=== PATIENT | male | born 1935 | race Caucasian/White ===

== ENCOUNTER 2023-11-24 13:08 | Emergency (ER) | payer MEDICARE, OTHER, SELFPAY ==
[2023-11-24 13:08] VITALS: BP 160/69; PULSE 64; RESP 16; TEMP 36.6; O2SAT 95; BMI 28.8
[2023-11-24 13:27] VITALS: BP 157/67
--- NOTE | 2023-11-24 13:50 | EKG12_ITS ---
Test Reason : ANXIETY Blood Pressure : / mmHG Vent. Rate : 060 BPM Atrial Rate : 000 BPM P-R Int : 000 ms QRS Dur : 150 ms QT Int : 430 ms P-R-T Axes : 000 -58 109 degrees QTc Int : 430 ms Wide QRS rhythm Left axis deviation Left bundle branch block Abnormal ECG NORMAL SINUS RHYTHM Confirmed by IRAM REVELES, ARPITA ([id number]), primer expeditor and drier MISTY ANDRADE ([id number]) on 11/25/2023 8:01:05 AM Referred By: Confirmed By:ARPITA WALDEN MD
--- NOTE | 2023-11-24 13:50 | CT_ITS ---
STUDY: CT BRAIN WITHOUT CONTRAST REASON FOR EXAM: Male, 88 years old. Anxiety, H/O retinal melanoma RADIATION DOSAGE (If Supplied By Facility): CTDIvol = ( 44.99 ) mGy, DLP = ( 846.73 ) mGycm TECHNIQUE: Transaxial CT imaging of the brain was performed without administration of intravenous contrast material. Individualized dose optimization techniques were used for this CT. COMPARISON: No relevant priors. FINDINGS: Normal soft tissue structures. Normal calvarium. There is mild cerebral atrophy with widening of the extra-axial spaces and ventricular dilatation. There are areas of decreased attenuation within the white matter tracts of the supratentorial brain, consistent with microvascular disease changes. Normal basal ganglia and thalami. Normal brainstem. Normal cerebellum. There is no intracranial hemorrhage. There are no findings of an acute ischemic infarction. Normal visualized paranasal sinuses. CT/Brain/Head without Contrast IMPRESSION: Chronic involutional changes of the brain. Electronically Signed: Roney Nielsen MD at 15:43 EDT ,
--- NOTE | 2023-11-24 13:52 | EDS_ITS ---
HPI History of Present Illness Chief Complaint: Anxiety Informant: patient and spouse/S.O. Narrative Narrative: Patient presents secondary to increased anxiety over the past 4 to 5 days. His daughter is a physician in [place] and she primarily manages his medications. His longstanding primary care physician in this area lost his license recently and he does not have another local PCP. He states that he had had a freckle on his retina for several years that was checked yearly. When it was rechecked in September of this year it had changed and concern was that he had developed melanoma. He had surgery at [facility] in October. He states that they put a radiation disc behind his eye on a Friday and patched his eye closed for the weekend. The disc was removed on Friday and then he was able to remove the eye patch 2 days later. He has a history of claustrophobia and thought that this would bother him, however he and both state that he came through this rather well. Over the past 4 days or so he has now noted increased anxiety. Hi s daughter had given him a prescription for Valium. He took 1 yesterday and stated that he was able to sit and watch the golf match, but still felt anxious. She also sent a prescription for Xanax that he tried it for and this morning when he woke up very anxious and having difficulty sitting still. He reported no significant improvement in this. She has also started him on Lexapro. Patient and state they spent the morning calling multiple different psychiatrists to be seen and treated for his anxiety. He has an appointment to see Dr. Guillermo at the counseling center later this month. He denies chest pain or palpitations. He denies headache. He states he has never had problems with anxiety in the past. [facility] Medical History (Updated 11/24/23 @ 15:[address] Ute Carson MD) Asthma HTN (hypertension) Left bundle branch block Melanoma Home Medications alprazolam 0.25 mg tablet 0.25 mg PO BID PRN PRN anxiety 11/24/23 [History Last Taken Unknown] atenolol 50 mg-chlorthalidone 25 mg tablet 1 tab PO DAILY 11/24/23 [History Last Taken Unknown] budesonide-formoterol HFA 80 mcg-4.5 mcg/actuation aerosol inhaler (Symbicort) 1 puff inhalation DAILY 11/24/23 [History Last Taken Unknown] cholecalciferol (vitamin D3) 10 mcg (400 unit) capsule 10 mcg PO DAILY 11/24/23 [History Last Taken Unknown] escitalopram oxalate 5 mg tablet 5 mg PO DAILY 11/24/23 [History Last Taken Unknown] mecobalamin (vitamin B12) 1,000 mcg chewable tablet 1,000 mcg PO DAILY 11/24/23 [History Last Taken Unknown] multivitamin 1 tab PO DAILY 11/24/23 [History Last Taken Unknown] niacin 250 mg tablet 250 mg PO DAILY 11/24/23 [History Last Taken Unknown] potassium chloride 20 mEq tablet,extended release 20 meq PO TID 11/24/23 [History Last Taken Unknown] Allergy/AdvReac Type Severity Reaction Status Date / Time No Known Allergies Allergy Verified 11/24/23 13:11 Social History household members: spouse housing: house current occupational status: retired Smoking Status: Never smoker ROS ROS ED Constitutional Constitutional ED: Denies chills or fever(s) Eyes Eyes: Denies discharge from eye(s) ENT ENT ED: Denies discharge from eye(s), rhinorrhea or sore throat Cardiovascular Cardiovascular: Denies chest pain or palpitations Respiratory/Chest Respiratory/Chest: Denies cough or dyspnea Gastrointestinal Gastrointestinal: Denies abdominal pain, nausea or vomiting Genitourinary Genitourinary ED: Denies dysuria Musculoskeletal Musculoskeletal: Denies back pain or extremity pain Integumentary Denies Abrasions or rash Neurologic Neurologic: Denies headache(s) or weakness Psychiatric Psychiatric: Reports anxiety; Denies depression EXAM Physical Exam Const Vital Signs: 11/24/23 13:08 11/24/23 13:27 11/24/23 15:08 Temperature 97.8 F Temperature Source Temporal Pulse Rate 64 61 Respiratory Rate 16 14 Blood Pressure 160/69 H 157/67 H 148/64 H Blood Pressure Mean 99 97 92 Pulse Ox 95 Oxygen Delivery Method Room Air Positive well nourished and well developed General Appearance ED: well developed HEENT Reports moist mucous membranes Eyes EOMs intact bilaterally Chest Wall inspection of chest normal and palpation of chest normal Resp normal respiratory effort and clear to auscultation bilaterally Cardio regular rate and regular rhythm GI non-tender Palpation: soft Extremity normal to inspection Neuro oriented x3 and no sensory deficits noted Motor Exam: strength 5/5 throughout Psych Mood & Affect: anxious Skin no rashes or lesions noted MDM MDM MDM Narrative Medical decision making narrative: Patient placed on feather mixer. EKG obtained to evaluate for cardiac arrhythmia/ischemia. IV line initiated. Labwork obtained to evaluate for leukocytosis, anemia, and electrolyte derangement. History & Record Review Discussion w/independent historian: Patient and Significant other Lab Data Attestation: I reviewed the patient's lab results. Labs: Laboratory Results - last 24 hr 11/24/23 14:05 WBC 8.1 RBC 4.78 Hgb 15.4 Hct 45.0 MCV 94.1 H MCH 32.2 H MCHC 34.2 RDW Std Deviation 44.6 H RDW Coeff of Josselin 13.1 Plt Count 147 L MPV 11.2 Immature Gran % (Auto) 0.400 Neut % (Auto) 70.3 H Lymph % (Auto) 19.3 Dorado % (Auto) 8.3 Eos % (Auto) 1.6 Baso % (Auto) 0.1 Absolute Neuts (auto) 5.7 Absolute Lymphs (auto) 1.56 Nucleated RBC % 0 Sodium 141 Potassium 3.6 Chloride 107 Carbon Dioxide 31.0 Anion Gap 3 L BUN 16 Creatinine 0.87 Estim Creat Clear Calc 66.57 Est GFR (MDRD) Af Amer 106 Est GFR (MDRD) Non-Af 88 BUN/Creatinine Ratio 18.3 Glucose 129 H Calcium 9.3 Total Bilirubin 0.90 Direct Bilirubin 0.26 AST 20 ALT 29 Alkaline Phosphatase 68 Troponin I High Sens 66 Total Protein 7.4 Albumin 3.9 Globulin 3.5 TSH 0.32 L Thyroxine (T4) 9.2 Radiography Chest X-Ray - ED: 1 View, Read by ED Physician, Cardiomegaly and Left Effusion EKG Initial EKG: Attestation: I personally reviewed and interpreted this EKG as follows: Interpretation: Sinus Rhythm (Sinus rhythm at 60 with left bundle branch block. No acute ischemia.) Treatment and Re-Evaluation :: CBC was a white count of 8.1 with a hemoglobin of 15.4. Differential unremarkable. Chemistry studies unremarkable with normal renal function. Glucose is 129. LFTs are unremarkable. TSH is slightly low at 0.32. I did add a T4 which is normal at 9.2. T3 is pending at this time. EKG is sinus rhythm with a left bundle branch block. No acute ischemia and unchanged when compared to prior. Portable chest x-ray per my interpretation reveals cardiomegaly with a small left pleural effusion. Radiology interpretation is pending at this time. Patient was given 0.5 mg of p.o. Ativan and is just now going for head CT. This was signed out to oncoming physician for final evaluation and recheck. Patient and spouse are aware of this. Discharge Plan Triage Chief Complaint: Anxiety ED Provider: Ute Carson Dx/Rx/DC Orders Clinical Impression: Anxiety Instructions: ED Anxiety Reaction Prescriptions: No Action alprazolam 0.25 mg tablet 0.25 mg PO BID PRN PRN (Reason: anxiety) atenolol-chlorthalidone 50-25 mg tablet 1 tab PO DAILY escitalopram oxalate 5 mg tablet 5 mg PO DAILY potassium chloride 20 mEq tablet extended release 20 meq PO TID niacin 250 mg tablet 250 mg PO DAILY cholecalciferol (vitamin D3) 10 mcg (400 unit) capsule 10 mcg PO DAILY multivitamin Tablet 1 tab PO DAILY mecobalamin (vitamin B12) 1,000 mcg tablet,chewable 1,000 mcg PO DAILY budesonide-formoterol [Symbicort] 80-4.5 mcg/actuation HFA aerosol inhaler 1 puff inhalation DAILY Primary Care Provider: Care Physician,No Primary Referrals: Care Physician,No Primary [Primary Care Provider] -
--- NOTE | 2023-11-24 14:04 | NURSING ---
NO OLD EKGS
[2023-11-24 14:12] LABS: Absolute Lymphocyte Count 1.56 X10^3/uL (0.83-4.51); Absolute Neutrophil Count 5.7 X10^3/uL (2.0-7.7); Basophil# 0.01 X10^3/uL; Basophil% 0.1 % (0-1); Eosinophil# 0.13 X10^3/uL; Eosinophils% 1.6 % (0-5); Hemoglobin 15.4 g/dL (13.0-16.5); Lymphocyte # 1.56 X10^3/ul (0.83-4.51); Lymphocyte % 19.3 % (19-41); Mean Corp Hgb Conc 34.2 g/dL (32-36); Mean Corpuscular Hgb 32.2 pg (27.0-32.0); Mean Corpuscular Volume 94.1 fL (80-94); Mean Platelet Vol. 11.2 fl (6.2-12.0); Monocyte# 0.67 X10^3/uL; Monocyte% 8.3 % (0-10); NRBC Flagged by Analyzer 0 % (0-5); Neutrophil % 70.3 % (47-70); Platelet Count 147 K/mm3 (150-450); RBC Distribution Width CV 13.1 % (11.6-14.6); RBC Distribution Width SD 44.6 fl (35.1-43.9); Red Blood Count 4.78 M/mm3 (4.6-6.2); White Blood Count 8.1 K/mm3 (4.4-11.0)
[2023-11-24 14:36] LABS: AST(SGOT) 20 U/L (15-37); Alanine Aminotransfer ALT/SGPT 29 U/L (16-61); Albumin, Serum 3.9 g/dL (3.2-5.0); Alkaline Phosphatase 68 U/L (45-117); Anion Gap 3 (5-15); BUN 16 mg/dL (7-18); BUN/Creat Ratio 18.3 RATIO (10-20); Bilirubin, Direct 0.26 mg/dL (0.00-0.30); Calcium,Total 9.3 mg/dL (8.5-10.1); Chloride 107 mmol/L (98-107); Creatinine, Serum 0.87 mg/dL (0.70-1.30); EST Glomerular Filtration Rate 88 mL/min (>60); Est Glom Filt Rate - Afr Amer 106 mL/min (>60); Estimated Creatinine Clearance 66.57 ml/min; Globulin 3.5 g/dL (2.2-4.2); Glucose 129 mg/dL (74-106); Potassium 3.6 mmol/L (3.5-5.1); Protein, Total 7.4 g/dL (6.4-8.2); Sodium Level 141 mmol/L (136-145); Thyroid Stim Hormone (TSH) 0.32 uIU/mL (0.358-3.74); Troponin-I HS 66 pg/mL (3.0-78.0)
[2023-11-24] MEDS: LORazepam 0.5 MG Tablet PO (14:41)
[2023-11-24 14:59] LABS: T4 Total, Thyroxin 9.2 ug/dL (4.5-12.1)
--- NOTE | 2023-11-24 15:00 | RAD_ITS ---
STUDY: X-RAY CHEST REASON FOR EXAM: Male, 88 years old. Sob TECHNIQUE: Single AP portable view of the chest. COMPARISON: None. FINDINGS: EKG electrodes are seen. Bibasilar infiltrates slightly more prominent on the left side. Small left pleural effusion. Normal size heart. Normal mediastinum and amina. Normal visualized pulmonary arteries. There is atherosclerotic calcification of the aortic arch with tortuosity. There are degenerative changes of the visualized thoracic spine. Normal visualized ribs, clavicles, and shoulders. There is no demonstrated abnormality of the visualized soft tissue structures of the upper abdomen. RAD/Chest 1 View (Portable) IMPRESSION: Bibasilar infiltrates worse on the left side with a small left pleural effusion. Electronically Signed: Roney Nielsen MD at 15:14 EDT ,
[2023-11-24 15:08] VITALS: BP 148/64; PULSE 61; RESP 14
[2023-11-24 15:30] LABS: T3 Total - Triiodothyronine 1.07 ng/mL (0.6-1.81)
[2023-11-24 16:43] VITALS: BP 124/67; PULSE 62; RESP 15; TEMP 36.6; O2SAT 97
== END 2023-11-24 16:49 | disposition home or self-care (01) ==
PROVIDERS: Emergency Provider Emergency Medicine; Visit Provider Emergency Medicine
DX: F41.9 Anxiety disorder, unspecified (principal); Z79.899 Other long term (current) drug therapy; I10 Essential (primary) hypertension; J45.909 Unspecified asthma, uncomplicated; Z79.51 Long term (current) use of inhaled steroids
CPT/HCPCS: 70450; 71045; 80048; 80076; 84436; 84443; 84480; 84484; 85025; 93005; 99285

== ENCOUNTER 2024-05-24 09:00 | Outpatient (RCR) | payer MEDICARE, OTHER, SELFPAY ==
--- NOTE | 2024-02-12 13:27 | HP.PTEVAL_ITS ---
Patient's Visit Information Visit Information Visit Information: HAO JACOME is a 88 year old M referred to Physical Therapy by Dr. Brielle Rivers DO with a diagnosis of POOR BALANCE ,LEG WEAKNESS ,RIGHT SHOULDER MUSCLE SPASMS. Date of Evaluation: 02/12/24 Physical Therapist: Collins Scanlon, PT, Cert MDT, OCS Visit Plan Frequency: 2x /Week Duration: 4 Weeks Plan: PT INTERVENTIONS PROGRESSIVE BALANCE TRAINING ,BLE STRENGTHENING ,ENDURANCE PROGRAM ,FUNCTIONAL STRENGTHENING ,CERVICAL ROM /POSTURAL EX'S AND MANUAL THERAPY STM AND MODALTIES NEED ( PLAN TX 60 MIN - 30 FOR BALANCE AND STRENGTH LE AND 30 FOR CERVICAL /POSTURE ) Subjective Subjective: This 88 y/o male presents to physical therapy with decrease balance/weakness and right shoulder with muscle spasms pain/spasms . Patient has had progressive weakness and decrease gait. Patient has retina with decrease vision. Patient seen DR mcgarry PT. Patient ahs fallen 3 x past 6 months mechanical fall. Denies dizziness /nausea. 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 Patient c/o right UT pain worse when pushing arm when getting out of bed. Patient c/o generalized weakness . Patient has seen chiropractor [place]. Patient has difficulty sleeping at night. Patient does not use cane. Patient lives in 2 story home level and 12 steps to 2 nd floor. Patient tub/shower. Patient able to dress and bath. Patient does cooking cleaning . Patient condition affects QOL and function/walking/ADLS. Patient goals to get stronger. SOCIAL: Objective Objective: POSTURE: mild forward posture rounded shoulders head forward PALPATION: tender UT/levator/paraspinals/OA NEURO: denies paresthesia/tingling ,reflexes C5-6-7 1/ AROM: shoulder flexion 120 degrees ,abduction 110 degrees ,ER 85 degrees CERVICAL ROM: flexion min loss ,extension severe loss ,lateral flexion /rotation severe loss pain ,left mod/severe loss MMT: grossly 4/5 ,shoulder s 3+/5 GAIT: ambulates with decrease step length ,NOS ,slow emilia forward posture MMT: quads/hams 4/5 ,hip flexion 4-/5 ,hip abd 3+/5 ankle 4/5 Special Tests C/S Radiculapathy - Left Upper limb tension test: Negative C/S Radiculapathy - Right Upper limb tension test: Negative C/S Radiculapathy - Left Spurlings: Positive C/S Radiculapathy - Right Spurlings: Positive C/S Radiculapathy - Left Cervical distraction: Negative C/S Radiculapathy - Right Cervical distraction: Negative C/S Radiculapathy - Left Relief test: Negative Sharp Ramehs: Negative Vertebral Artery Test: Negative Alar Ligament Test: Negative Balance/Special Test Scores Functional Gait Assessment Score: 14 % Disability: 53.3400 CATSIB Score (Max score 120 seconds): 70 Lower Extremity Functional Score: 28 Goals Goal 1:: Patient to be I with HEP for strengthening and balance Goal Time Frame: 4-6 Weeks Goal 2:: Patient to demonstrate 50% improvement with increase strength and improved balance Goal Time Frame: 4-6 Weeks Goal 3:: Patient to improve CATSIB by 5 points to decrease risk of falls Goal Time Frame: 4-6 Weeks Goal 4:: Patient to improve LFES score by 5 points to improve QOL Goal Time Frame: 4-6 Weeks Goal 5:: Patient to improve functional gait assessment score by 5 points to improve QOL and balance Goal Time Frame: 4-6 Weeks Goal 6:: Patient improve cervical ROM for function of recovery to drive car to turn neck Goal Time Frame: 4-6 Weeks Rehabilitation Potential Physical Therapy Diagnosis: Patient has decrease balance with weakness with decrease CATSIBE and functional gait assessment ,h/o falls with cervical pain with possible stenosis worse on right side with pain increases with motion to right thus benefit from skilled PT Rehabilitation Potential: Good Anticipated Interventions Patient/Client Instruction: Educate patient on: Condition and Plan of Care For the Purpose of:: To decrease pain, To increase ROM, To improve muscle performance and motor function, To improve ability to perform ADL's, To increase tolerance to activity/condition/position, To improve ability of physical actions for home/community/work/leisure, To improve gait and locomotor functions, To increase flexibility/ROM, To improve endurance and To improve balance Therapeutic Exercise to Include: Strength training, Endurance training, Balance training, Flexibilty training, Gait and locomotor training and Active ROM Comment: BLE ,CERVICAL For the Purpose of:: To decrease pain, To increase ROM, To improve muscle performance and motor function, To increase tolerance to activity/condition/position, To improve health of tissue, To decrease soft tissue restriction, To increase flexibility/ROM, To improve endurance, To improve balance and To improve tolerance to ADL's Manual Therapy Techniques to Include: Soft tissue mobilization Comment: CERVICAL For the Purpose of:: To decrease pain, To increase ROM, To improve nutrient delivery to tissue, To increase oxygenation perfusion, To improve health of tissue and To decrease soft tissue restriction TENS: Yes IF ES: Yes Cryotherapy (ice pack, ice massage): Yes Thermo therapy (hot pack): Yes Ultrasound (thermal/non thermal): Yes For the Purpose of:: To decrease pain, To increase ROM, To improve nutrient delivery to tissue, To increase oxygenation perfusion, To improve health of tissue and To decrease soft tissue restriction Text: Thank you for the opportunity to evaluate your patient. For Medicare and Medicare HMO plans, please review the plan of care and approve it. It will need to be FAXED BACK to us at [phone] for Medicare purposes. For Medicare only, by signing this I certify the plan of care. Please let me know if there are questions or concerns regarding this plan of c are. Physician Signature: Date:
--- NOTE | 2024-03-18 11:40 | HP.PTREVAL ---
Re-Evaluation Intro: Dr. Brielle Rivers, DO, It has been my pleasure to treat HAO JACOME over the last 8 visits for POOR BALANCE ,LEG WEAKNESS ,RIGHT SHOULDER MUSCLE SPASMS. Please see the progress note below for an update on the physical therapy plan of care! Subjective Subjective: Pain in right UT intermittent ,I was real sore last session Today min pain Objective Objective/Function: POSTURE: mild forward posture rounded shoulders head forward PALPATION: tender UT/levator/paraspinals/OA NEURO: denies paresthesia/tingling ,reflexes C5-6-7 1/ AROM: shoulder flexion 120 degrees ,abduction 110 degrees ,ER 85 degrees CERVICAL ROM: flexion min loss ,extension severe loss ,lateral flexion /rotation severe loss pain ,left mod/severe loss MMT: grossly 4/5 ,shoulder s 3+/5 GAIT: ambulates with decrease step length ,NOS ,slow emilia forward posture MMT: quads/hams 4/5 ,hip flexion 4-/5 ,hip abd 3+/5 ankle 4/5 Plan Plan Plan: PT INTERVENTIONS PROGRESSIVE BALANCE TRAINING ,BLE STRENGTHENING ,ENDURANCE PROGRAM ,FUNCTIONAL STRENGTHENING ,CERVICAL ROM /POSTURAL EX'S AND MANUAL THERAPY STM AND MODALTIES NEED ( PLAN TX 60 MIN - 30 FOR BALANCE AND STRENGTH LE AND 30 FOR CERVICAL /POSTURE ) Balance/Gait/Functional tests Balance/Special Test Scores Functional Gait Assessment Score: 15 % Disability: 50.0000 CATSIB Score (Max score 120 seconds): 75 Lower Extremity Functional Score: 28 30 Second Chair Rise Test Seconds: 4 Goals Goals Goal 1:: Patient to be I with HEP for strengthening and balance Goal Time Frame: 4-6 Weeks Goal Progress: Progressing Goal 2:: Patient to demonstrate 50% improvement with increase strength and improved balance Goal Time Frame: 4-6 Weeks Goal Progress: Progressing Goal 3:: Patient to improve CATSIB by 5 points to decrease risk of falls Goal Time Frame: 4-6 Weeks Goal 4:: Patient to improve LFES score by 5 points to improve QOL Goal Time Frame: 4-6 Weeks Goal Progress: Progressing Goal 5:: Patient to improve functional gait assessment score by 5 points to improve QOL and balance Goal Time Frame: 4-6 Weeks Goal Progress: Progressing Goal 6:: Patient improve cervical ROM for function of recovery to drive car to turn neck Goal Time Frame: 4-6 Weeks Goal Progress: Progressing Anticipated Interventions Anticipated Interventions Patient/Client Instruction: Educate patient on: Condition and Plan of Care For the Purpose of:: To decrease pain, To increase ROM, To improve muscle performance and motor function, To improve ability to perform ADL's, To increase tolerance to activity/condition/position, To improve ability of physical actions for home/community/work/leisure, To improve gait and locomotor functions, To increase flexibility/ROM, To improve endurance and To improve balance Therapeutic Exercise to Include: Strength training, Endurance training, Balance training, Flexibilty training, Gait and locomotor training and Active ROM Comment: BLE ,CERVICAL For the Purpose of:: To decrease pain, To increase ROM, To improve muscle performance and motor function, To increase tolerance to activity/condition/position, To improve health of tissue, To decrease soft tissue restriction, To increase flexibility/ROM, To improve endurance, To improve balance and To improve tolerance to ADL's Manual Therapy Techniques to Include: Soft tissue mobilization Comment: CERVICAL For the Purpose of:: To decrease pain, To increase ROM, To improve nutrient delivery to tissue, To increase oxygenation perfusion, To improve health of tissue and To decrease soft tissue restriction TENS: Yes IF ES: Yes Cryotherapy (ice pack, ice massage): Yes Thermo therapy (hot pack): Yes Ultrasound (thermal/non thermal): Yes For the Purpose of:: To decrease pain, To increase ROM, To improve nutrient delivery to tissue, To increase oxygenation perfusion, To improve health of tissue and To decrease soft tissue restriction Re-Evaluation Ending Re-evaluation ending: Please do not hesitate to contact me at [phone] by phone or if you have questions or concerns regarding this new plan of care! Sincerely, Collins Scanlon, PT, Cert MDT, OCS
--- NOTE | 2024-04-19 13:41 | HP.PTREVAL_ITS ---
Re-Evaluation Intro: Dr. Brielle Rivers, DO, It has been my pleasure to treat HAO JACOME over the last 11 visits for POOR BALANCE ,LEG WEAKNESS ,RIGHT SHOULDER MUSCLE SPASMS. Please see the progress note below for an update on the physical therapy plan of care! Subjective Subjective: Making good progress with neck pain Need to work on balance Objective Objective/Function: * Patient will continue to benefit from skilled PT to improve balance and pain patient has made nice progress towards goals* POSTURE: mild forward posture rounded shoulders head forward PALPATION: tender UT/levator/paraspinals/OA NEURO: denies paresthesia/tingling ,reflexes C5-6-7 / AROM: shoulder flexion 140 degrees ,abduction 130 degrees ,ER 85 degrees CERVICAL ROM: flexion min loss ,extension severe loss ,lateral flexion /rotation severe loss pain ,left mod/severe loss MMT: grossly 4/5 ,shoulder s 3+/5 GAIT: ambulates with decrease step length ,NOS ,slow emilia forward posture MMT: quads/hams 4/5 ,hip flexion 4-/5 ,hip abd 3+/5 ankle 4/5 Plan Plan Plan: PT INTERVENTIONS PROGRESSIVE BALANCE TRAINING ,BLE STRENGTHENING ,ENDURAN CE PROGRAM ,FUNCTIONAL STRENGTHENING ,CERVICAL ROM /POSTURAL EX'S AND MANUAL THERAPY STM AND MODALTIES NEED ( PLAN TX 60 MIN - 30 FOR BALANCE AND STRENGTH LE AND 30 FOR CERVICAL /POSTURE ) Balance/Gait/Functional tests Balance/Special Test Scores Functional Gait Assessment Score: 15 % Disability: 50.0000 CATSIB Score (Max score 120 seconds): 85 Lower Extremity Functional Score: 30 30 Second Chair Rise Test Seconds: 4 Goals Goals Goal 1:: Patient to be I with HEP for strengthening and balance Goal Time Frame: 4-6 Weeks Goal Progress: Progressing Goal 2:: Patient to demonstrate 50% improvement with increase strength and improved balance Goal Time Frame: 4-6 Weeks Goal Progress: Progressing Goal 3:: Patient to improve CATSIB by 5 points to decrease risk of falls Goal Time Frame: 4-6 Weeks Goal 4:: Patient to improve LFES score by 5 points to improve QOL Goal Time Frame: 4-6 Weeks Goal Progress: Progressing Goal 5:: Patient to improve functional gait assessment score by 5 points to improve QOL and balance Goal Time Frame: 4-6 Weeks Goal Progress: Progressing Goal 6:: Patient improve cervical ROM for function of recovery to drive car to turn neck Goal Time Frame: 4-6 Weeks Goal Progress: Progressing Anticipated Interventions Anticipated Interventions Patient/Client Instruction: Educate patient on: Condition and Plan of Care For the Purpose of:: To decrease pain, To increase ROM, To improve muscle performance and motor function, To improve ability to perform ADL's, To increase tolerance to activity/condition/position, To improve ability of physical actions for home/community/work/leisure, To improve gait and locomotor functions, To increase flexibility/ROM, To improve endurance and To improve balance Therapeutic Exercise to Include: Strength training, Endurance training, Balance training, Flexibilty training, Gait and locomotor training and Active ROM Comment: BLE ,CERVICAL For the Purpose of:: To decrease pain, To increase ROM, To improve muscle performance and motor function, To increase tolerance to activity/condition/position, To improve health of tissue, To decrease soft tissue restriction, To increase flexibility/ROM, To improve endurance, To improve balance and To improve tolerance to ADL's Manual Therapy Techniques to Include: Soft tissue mobilization Comment: CERVICAL For the Purpose of:: To decrease pain, To increase ROM, To improve nutrient delivery to tissue, To increase oxygenation perfusion, To improve health of tissue and To decrease soft tissue restriction TENS: Yes IF ES: Yes Cryotherapy (ice pack, ice massage): Yes Thermo therapy (hot pack): Yes Ultrasound (thermal/non thermal): Yes For the Purpose of:: To decrease pain, To increase ROM, To improve nutrient delivery to tissue, To increase oxygenation perfusion, To improve health of tissue and To decrease soft tissue restriction Re-Evaluation Ending Re-evaluation ending: Please do not hesitate to contact me at [phone] by phone or if you have questions or concerns regarding this new plan of care! Sincerely, Collins Scanlon, PT, Cert MDT, OCS
--- NOTE | 2024-04-19 13:47 | HP.PTEVAL_ITS ---
Patient's Visit Information Visit Information Visit Information: HAO JACOME is a 88 year old M referred to Physical Therapy by Dr. Brielle Rivers DO with a diagnosis of POOR BALANCE ,LEG WEAKNESS ,RIGHT SHOULDER MUSCLE SPASMS. Date of Evaluation: 02/12/24 Physical Therapist: Collins Scanlon, PT, Cert MDT, OCS Visit Plan Frequency: 2x /Week Duration: 4 Weeks Plan: PT INTERVENTIONS PROGRESSIVE BALANCE TRAINING ,BLE STRENGTHENING ,ENDURANCE PROGRAM ,FUNCTIONAL STRENGTHENING ,CERVICAL ROM /POSTURAL EX'S AND MANUAL THERAPY STM AND MODALTIES NEED ( PLAN TX 60 MIN - 30 FOR BALANCE AND STRENGTH LE AND 30 FOR CERVICAL /POSTURE ) Subjective Subjective: This 88 y/o male presents to physical therapy with decrease balance/weakness and right shoulder with muscle spasms pain/spasms . Patient has had progressive weakness and decrease gait. Patient has retina with decrease vision. Patient seen DR mcgarry PT. Patient ahs fallen 3 x past 6 months mechanical fall. Denies dizziness /nausea. 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 Patient c/o right UT pain worse when pushing arm when getting out of bed. Patient c/o generalized weakness . Patient has seen chirop[place]. Patient has difficulty sleeping at night. Patient does not use cane. Patient lives in 2 story home level and 12 steps to 2 nd floor. Patient tub/shower. Patient able to dress and bath. Patient does cooking cleaning . Patient condition affects QOL and function/walking/ADLS. Patient goals to get stronger. SOCIAL: Pain Neck/Shoulders: Pain Intensity (Out of 10): 0 Objective Objective: POSTURE: mild forward posture rounded shoulders head forward PALPATION: tender UT/levator/paraspinals/OA NEURO: denies paresthesia/tingling ,reflexes C5-6-7 09/10 AROM: shoulder flexion 120 degrees ,abduction 110 degrees ,ER 85 degrees CERVICAL ROM: flexion min loss ,extension severe loss ,lateral flexion /rotation severe loss pain ,left mod/severe loss MMT: grossly 4/5 ,shoulder s 3+/5 GAIT: ambulates with decrease step length ,NOS ,slow emilia forward posture MMT: quads/hams 4/5 ,hip flexion 4-/5 ,hip abd 3+/5 ankle 4/5 Special Tests C/S Radiculapathy - Left Upper limb tension test: Negative C/S Radiculapathy - Right Upper limb tension test: Negative C/S Radiculapathy - Left Spurlings: Positive C/S Radiculapathy - Right Spurlings: Positive C/S Radiculapathy - Left Cervical distraction: Negative C/S Radiculapathy - Right Cervical distraction: Negative C/S Radiculapathy - Left Relief test: Negative Sharp Ramesh: Negative Vertebral Artery Test: Negative Alar Ligament Test: Negative Balance/Special Test Scores Functional Gait Assessment Score: 15 % Disability: 50.0000 CATSIB Score (Max score 120 seconds): 85 Lower Extremity Functional Score: 30 30 Second Chair Rise Test Seconds: 4 Goals Goal 1:: Patient to be I with HEP for strengthening and balance Goal Time Frame: 4-6 Weeks Goal 2:: Patient to demonstrate 50% improvement with increase strength and improved balance Goal Time Frame: 4-6 Weeks Goal 3:: Patient to improve CATSIB by 5 points to decrease risk of falls Goal Time Frame: 4-6 Weeks Goal 4:: Patient to improve LFES score by 5 points to improve QOL Goal Time Frame: 4-6 Weeks Goal 5:: Patient to improve functional gait assessment score by 5 points to improve QOL and balance Goal Time Frame: 4-6 Weeks Goal 6:: Patient improve cervical ROM for function of recovery to drive car to turn neck Goal Time Frame: 4-6 Weeks Rehabilitation Potential Physical Therapy Diagnosis: Patient has decrease balance with weakness with decrease CATSIBE and functional gait assessment ,h/o falls with cervical pain with possible stenosis worse on right side with pain increases with motion to right thus benefit from skilled PT Rehabilitation Potential: Good Anticipated Interventions Patient/Client Instruction: Educate patient on: Condition and Plan of Care For the Purpose of:: To decrease pain, To increase ROM, To improve muscle performance and motor function, To improve ability to perform ADL's, To increase tolerance to activity/condition/position, To improve ability of physical actions for home/community/work/leisure, To improve gait and locomotor functions, To increase flexibility/ROM, To improve endurance and To improve balance Therapeutic Exercise to Include: Strength training, Endurance training, Balance training, Flexibilty training, Gait and locomotor training and Active ROM Comment: BLE ,CERVICAL For the Purpose of:: To decrease pain, To increase ROM, To improve muscle performance and motor function, To increase tolerance to activity/condition/position, To improve health of tissue, To decrease soft tissue restriction, To increase flexibility/ROM, To improve endurance, To improve balance and To improve tolerance to ADL's Manual Therapy Techniques to Include: Soft tissue mobilization Comment: CERVICAL For the Purpose of:: To decrease pain, To increase ROM, To improve nutrient delivery to tissue, To increase oxygenation perfusion, To improve health of tissue and To decrease soft tissue restriction TENS: Yes IF ES: Yes Cryotherapy (ice pack, ice massage): Yes Thermo therapy (hot pack): Yes Ultrasound (thermal/non thermal): Yes For the Purpose of:: To decrease pain, To increase ROM, To improve nutrient delivery to tissue, To increase oxygenation perfusion, To improve health of tissue and To decrease soft tissue restriction Text: Thank you for the opportunity to evaluate your patient. For Medicare and Medicare HMO plans, please review the plan of care and approve it. It will need to be FAXED BACK to us at [phone] for Medicare purposes. For Medicare only, by signing this I certify the plan of care. Please let me know if there are questions or concerns regarding this plan of care. Physician Sig nature: Date:
--- NOTE | 2024-05-24 10:15 | HP.PTDCSUM_ITS ---
Discharge Summary D/C summary: It has been my pleasure to treat HAO JACOME referred by Dr. Brielle Rivers DO, with the diagnosis of POOR BALANCE ,LEG WEAKNESS ,RIGHT SHOULDER MUSCLE SPASMS for a total of 15 visit(s). Discharge Date: 05/24/24 Please see the following information for a summary of their discharge status. Subjective Subjective: Doing okay Plan to see [facility] for [place] Pain Neck/Shoulders: Pain Intensity (Out of 10): 1 Overall Improvement % Improvement: 60 Objective Objective/Function: POSTURE: mild forward posture rounded shoulders head forward PALPATION: tender UT/levator/paraspinals/OA NEURO: denies paresthesia/tingling ,reflexes C5-6-7 / AROM: shoulder flexion 140 degrees ,abduction 130 degrees ,ER 85 degrees CERVICAL ROM: flexion min loss ,extension severe loss ,lateral flexion /rotation severe loss pain ,left mod/severe loss MMT: grossly 4/5 ,shoulder s 3+/5 GAIT: ambulates with decrease step length ,NOS ,slow emilia forward posture MMT: quads/hams 4/5 ,hip flexion 4-/5 ,hip abd 3+/5 ankle 4/5 Goals Goal 1:: Patient to be I with HEP for strengthening and balance Goal Progress: Goal Met Goal 2:: Patient to demonstrate 50% improvement with increase strength and improved balance Goal Progress: Progressing Goal 3:: Patient to improve CATSIB by 5 points to decrease risk of falls Goal Progress: Goal Met Goal 4:: Patient to improve LFES score by 5 points to improve QOL Goal Progress: Goal Met Goal 5:: Patient to improve functional gait assessment score by 5 points to improve QOL and balance Goal Progress: Goal Met Goal 6:: Patient improve cervical ROM for function of recovery to drive car to turn neck Goal Progress: Goal Met Plan Plan: D/C D/C Information Discharge Comments: HEP d/c sentence: If there are questions or concerns regarding this patient's physical therapy, please feel free to call me at [phone]. Thank you for the referral of this patient. Sincerely, Collins Scanlon, PT, Cert MDT, OCS Balance/Gait/Functional tests Balance/Special Test Scores Functional Gait Assessment Score: 19 % Disability: 36.6700 CATSIB Score (Max score 120 seconds): 75 Lower Extremity Functional Score: 47 30 Second Chair Rise Test Seconds: 4 Improvement % Improvement: 60
== END 2024-05-24 19:00 | disposition home or self-care (01) ==
LOC: PT 09:00
PROVIDERS: Referring Provider Internal Medicine; Visit Provider Internal Medicine
DX: R26.9 Unspecified abnormalities of gait and mobility (principal); R29.898 Other symptoms and signs involving the musculoskeletal system; M62.838 Other muscle spasm
CPT/HCPCS: 97110; 97112; 97140; 97162; 97530